=== PATIENT | male | born 1950 | race Caucasian/White ===

== ENCOUNTER 2017-10-22 13:27 | Day surgery (SDC) | payer OTHER ==
[2017-10-22] MEDS ORDERED: LR 1,000 ML IV ONE (13:45)
--- NOTE | 2017-10-22 15:29 | PDANEPAE ---
ANE Past Medical History - Cardiovascular History Hx Hypertension: Yes Hx Arrhythmias: No Hx Chest Pain: No Hx Coronary Artery / Peripheral Vascular Disease: No Hx CHF / Valvular Disease: No Hx Palpitations: No - Pulmonary History Hx COPD: No Hx Asthma/Reactive Airway Disease: No Hx Recent Upper Respiratory Infection: No Hx Oxygen in Use at Home: No Hx Sleep Apnea: No Sleep Apnea Screening Result - Last Documented: Positive - Neurologic History Hx Cerebrovascular Accident: No Hx Seizures: No Hx Dementia: No - Endocrine History Hx Diabetes: No - Renal History Hx Renal Disorders: No - Liver History Hx Hepatic Disorders: No - Neurological & Psychiatric Hx Hx Neurological and Psychiatric Disorders: No - Cancer History Hx Cancer: Yes Cancer History Comment: basal cell removed - Congenital Disorder History Hx Congenital Disorders: No - GI History Hx Gastrointestinal Disorders: Yes Gastrointestinal History Comment: polyps - Other Health History Other Health History: none - Chronic Pain History Chronic Pain: No - Surgical History Prior Surgeries: none ANE Review of Systems Review of Systems: - Exercise capacity METS (RN): 4 METS ANE Patient History - Allergies Allergies/Adverse Reactions: No Known Allergies Allergy (Verified 10/15/17 11:16) - Home Medications Home Medications: Adderall 05/12/16 [Last Taken 10/21/17] Vitamin D3 05/12/16 [Last Taken 10/21/17] Valsartan/Hydrochlorothiazide 10/15/17 [Last Taken 10/21/17] - NPO status NPO Since - Liquids (Date): 10/22/17 NPO Since - Liquids (Time): 05:30 NPO Since - Solids (Date): 10/21/17 NPO Since - Solids (Time): 09:00 - Anes Hx Anes Hx: no prior problems - Smoking Hx Smoking Status: Former smoker - Family Anes Hx Family Hx Anesthesia Complications: none ANE Labs/Vital Signs - Vital Signs Blood Pressure: 143/87 Heart Rate: 85 Respiratory Rate: 16 O2 Sat (%): 96 Height: 177.8 cm Weight: 92.986 kg ANE Physical Exam - Airway Neck exam: FROM Mallampati Score: Class 1 Mouth exam: normal dental/mouth exam - Pulmonary Pulmonary: no respiratory distress - Cardiovascular Cardiovascular: regular rate and rhythym - ASA Status ASA Status: II ANE Anesthesia Plan Anesthesia Plan: GA with mask
[2017-10-22] MEDS ORDERED: PROPOFOL/EMULSION 500 MG/50 ML BOTTLE IV ONE (15:34)
[2017-10-22] MEDS ORDERED: LIDOCAINE 2% 5 ML SDV ONE (15:38)
--- NOTE | 2017-10-22 16:10 | PDGENHP ---
History & Physical Chief Complaint: phx polyps History of Present Illness: 67 year old male presents for surveillance colonoscopy. Pertinent Past, Social, Family History: PMHx: hyperlipidemia, HTN. PSughx: basal cell Relevant Physical Exam: HEENT: anicteric. CV; RRR +s1s2. lungs: CTAB. Abd: soft, nt, + bs Cardiorespiratory Assessment: ASA 2
--- NOTE | 2017-10-22 16:24 | POSTANESTH ---
Post Anesthetic Evaluation Cardiovascular Status: Normal, Stable Respiratory Status: Normal, Stable Level of Consciousness/Mental Status: Can Participate in Eval Pain Control: Adequate, Prn Tx Ordered Nausea/Vomiting Control: Adequate, Prn Tx Ordered Complications Possibly Related to Anesthesia: None Noted
[2017-10-22] MEDS ORDERED: fentaNYL 100 MCG/2 ML INJ IVP PRN (16:31)
[2017-10-22] MEDS ORDERED: NALOXONE HCL 0.4 MG/ML INJ IVP PRN (16:31)
[2017-10-22] MEDS ORDERED: oxyCODONE IR 5 MG TAB PO PRN (16:31)
[2017-10-22] MEDS ORDERED: ALBUTEROL 3 ML DEYVIAL IH PRN (16:31)
[2017-10-22] MEDS ORDERED: ONDANSETRON 4 MG/2 ML VIAL IVP PRN (16:31)
[2017-10-22] MEDS ORDERED: ACETAMINOPHEN 500 MG TAB PO PRN (16:31)
[2017-10-22] MEDS ORDERED: LR 500 ML IV PRN (16:31)
--- NOTE | 2017-10-22 16:54 | GIREPORT ---
[facility] - Endoscopy Department Patient Name: Phil Mcginnis Procedure Date: 10/22/2017 3:56 PM Patient Type: Outpatient Attending MD/ ER Physician: Ángel Allen MD Procedure: Colonoscopy Indications: High risk colon cancer surveillance: Personal history of colonic polyps Patient Profile: 67 year old male with a history of complex polyps presents for surveill ance colonoscopy. Providers: Ángel Allen MD Medicines: Monitored Anesthesia Care Complications: No immediate complications. Estimated blood loss: Minimal. Description of Procedure: After obtaining informed consent, the scope was passed under direct vis ion. Throughout the procedure, the patient's blood pressure, pulse, and oxyg en saturations were monitored continuously. The Colonoscope with irrigatio n channel was introduced through the anus and advanced to the cecum, identified by appendiceal orifice and ileocecal valve. The colonoscopy was performed without difficulty. The patient tolerated the procedure well. The quality of the bowel preparation was good. The ileocecal valve, appendi ceal orifice, and rectum were photographed. Findings: The perianal and digital rectal examinations were normal. Pertinent negatives include no palpable rectal lesions. Diverticula were found in the sigmoid colon and descending colon. A 2 mm polyp was found in the ascending colon. The polyp was sessile. T he polyp was removed with a cold biopsy forceps. Resection and retrieval w ere complete. A 4 mm polyp was found in the ascending colon. The polyp was sessile. T he polyp was removed with a cold snare. Resection and retrieval were compl ete. Two sessile polyps were found in the transverse colon. The polyps were 4 to 5 mm in size. These polyps were removed with a cold snare. Resection an d retrieval were complete. A 2 mm polyp was found in the descending colon. The polyp was sessile. The polyp was removed with a cold biopsy forceps. Resection and retrieval w ere complete. Estimated Blood Loss: Estimated blood loss was minimal. Post Op Diagnosis: - Diverticulosis in the sigmoid colon and in the descending colon. - One 2 mm polyp in the ascending colon, removed with a cold biopsy for ceps. Resected and retrieved. - One 4 mm polyp in the ascending colon, removed with a cold snare. Res ected and retrieved. - Two 4 to 5 mm polyps in the transverse colon, removed with a cold sna re. Resected and retrieved. - One 2 mm polyp in the descending colon, removed with a cold biopsy forceps. Resected and retrieved. Recommendation: - Discharge patient to home (with escort). - Resume previous diet. - Continue present medications. - Repeat colonoscopy in 2 years for surveillance of multiple polyps. - Await pathology results. Attending Participation: I personally performed the entire procedure. Ángel Allen MD Ángel Allen MD 10/22/2017 4:53:44 PM This report has been signed electronicallyÁngel Allen MD Number of Addenda: 0 Note Initiated On: 10/22/2017 3:56 PM Total Procedure Duration Time 0 hours 28 minutes 25 seconds [email or web address]
[2017-10-22 17:17] VITALS: BP 133/87
== END 2017-10-22 17:46 | disposition home or self-care (01) ==
LOC: FSGY 13:27
PROVIDERS: ATTEND Internal Medicine Gastroenterology
PROC: 0DBL8ZX Excision of Transverse Colon, Via Natural or Artificial Opening Endoscopic, Diagnostic (ICD-10-PCS; principal; 2017-10-22 15:15)
PROC: 0DBM8ZX Excision of Descending Colon, Via Natural or Artificial Opening Endoscopic, Diagnostic (ICD-10-PCS; principal; 2017-10-22 15:15)
PROC: 0DBK8ZX Excision of Ascending Colon, Via Natural or Artificial Opening Endoscopic, Diagnostic (ICD-10-PCS; principal; 2017-10-22 15:15)
DX: Z12.11 Encounter for screening for malignant neoplasm of colon (principal); E78.5 Hyperlipidemia, unspecified; I10 Essential (primary) hypertension; D12.2 Benign neoplasm of ascending colon; D12.4 Benign neoplasm of descending colon; K57.30 Diverticulosis of large intestine without perforation or abscess without bleeding
CPT/HCPCS: J2704